=== PATIENT | female | born 1945 | race Caucasian/White ===

== ENCOUNTER 2020-11-07 11:46 | Emergency (ER) | payer OTHER, MEDICARE ==
[~2020-11-07] VITALS: Ht 160 cm; Wt 63.5 kg
[~2020-11-07 11:46] MED LIST: BENADRYL25 MG PO; EPIPEN0.3 MG/0.3 IM; PAXIL 20 MG TAB20 MG PO; PEPCID40 MG PO; PREDNISONE50 MG PO
[2020-11-07 11:58] VITALS: BP 151/72
[2020-11-07] MEDS ORDERED: VITAMIN D PO (12:15)
== END 2020-11-07 13:26 | disposition home or self-care (01) ==
LOC: ER 11:46
DX: M25.562 Pain in left knee (principal); M25.531 Pain in right wrist; Z79.899 Other long term (current) drug therapy; Z88.1 Allergy status to other antibiotic agents; W01.0XXA Fall on same level from slipping, tripping and stumbling without subsequent striking against object, initial encounter; Y93.89 Activity, other specified; Y92.89 Other specified places as the place of occurrence of the external cause; Y99.8 Other external cause status